=== PATIENT | male | born 1970 | race Caucasian/White ===

== ENCOUNTER 2019-03-14 11:54 | Inpatient (IN) ==
--- NOTE | 2019-03-14 12:31 | EKG Report ---
Test Performed on : 03/14/2019 11:57:34 AM Test Reason : chest pain Blood Pressure : / mmHG Vent. Rate : 100 BPM Atrial Rate : 100 BPM P-R Int : 128 ms QRS Dur : 100 ms QT Int : 364 ms P-R-T Axes : 061 062 003 degrees QTc Int : 469 ms Normal sinus rhythm. Cannot rule out Inferior infarct , age undetermined Abnormal ECG When compared with ECG of 31-AUG-2014 10:29, Minimal criteria for Inferior infarct are now present Unconfirmed Result
[2019-03-14] MEDS ORDERED: NITROGLYCERIN SL ONE (12:37)
[2019-03-14] MEDS ORDERED: ASPIRIN PO ONE (12:37)
[2019-03-14] MEDS ORDERED: DUONEB (A & A) INH ONE (12:38)
--- NOTE | 2019-03-14 12:48 | PROVIDER DOCUMENTATION ---
HPI-Cardiac General - General Chief Complaint: Chest Pain Stated Complaint: CP, SWEATY, WEAK Time Seen by Provider: 03/14/19 12:15 Source: patient Allergies/Adverse Reactions: Patient Allergies Allergy/AdvReac Type Severity Reaction Status Date / Time meperidine HCl * Allergy Unknown Verified 03/14/19 12:33 [From Demerol] Home Medications: Home Medication List Medication Instructions Recorded Confirmed Last Taken Type Tamsulosin HCl [Flomax] 0.4 mg PO DAILY 03/07/14 03/14/19 03/14/19 History Methocarbamol [Robaxin-750] 750 mg PO Q8H PRN PRN 08/31/14 03/14/19 03/14/19 History Dexlansoprazole [Dexilant] 60 mg PO DAILY 01/07/17 03/14/19 03/14/19 History Oxycodone HCl/Acetaminophen 1 each PO Q8H PRN PRN 01/07/17 03/14/19 03/14/19 History [Percocet 10-325 mg Tablet] Cholecalciferol (Vitamin D3) 1 cap PO DIRECTED 03/14/19 03/14/19 03/14/19 History [Vitamin D3] Duloxetine HCl 1 tab PO DAILY 03/14/19 03/14/19 03/14/19 History Meloxicam 1 tab PO DAILY 03/14/19 03/14/19 03/13/19 History Pregabalin 1 tab PO BID 03/14/19 03/14/19 03/14/19 History - History of Present Illness-Cardiac Nature of Presenting Problem: Patient with a h/o COPD, ?CHF. CAD s/p CATH ,Arthritis(C spine, lumbar spine) recently had steroid shot to the neck and on chronic opiate medication, reports pain around the c spine, left arm and lower extremities around 7AM today with left sided chest pain, diaphoresis and fatigue while at work today. he had taken his pain med around 5AM today prior to onset of symptoms. Admits to nausea without vomiting. No focal weakness. he reports a diagnosis of CHD, CAD with evaluation in this hospital in the past but records does not show these diagnosis and he has not cardiac medss Location: reports: other (left sided) Quality of Pain: reports: sharp Onset/Duration: this morning Timing: still present Context/Activities at Onset: reports: light activity Modifying Factors: improves with: nothing Palpitation Quality: N/A History of arrythmia: reports: none Nitro Today/Relief: reports: no nitro taken today Aspirin Treatment Today: reports: no aspirin today Prior Chest Pain/Cardiac Workup: reports: cardiac cath Associated Symptoms: reports: diaphoresis, nausea Similar Symptoms Previously?: Yes Recently Seen Here or By Another Healthcare Provider: Yes Review of Systems - Adult - REVIEW OF SYSTEMS - ADULT Constitutional: reports: no symptoms reported Eyes: reports: no symptoms reported Ears, Nose, Mouth & Throat: reports: no symptoms reported Cardiovascular: reports: see HPI Respiratory: reports: no symptoms reported Gastrointestinal: reports: no symptoms reported Genitourinary: reports: no symptoms reported Musculoskeletal: reports: no symptoms reported Integumentary: reports: no symptoms reported Neurological: reports: no symptoms reported Psychiatric: reports: no symptoms reported Endocrine: reports: no symptoms reported Hematologic/Lymphatic: reports: no symptoms reported Allergic/Immunologic: reports: no symptoms reported Past History - Adult - PAST MEDICAL HISTORY-ADULT Review of Records: reports: Nursing Assessment Review, Medications Reviewed, Social history reviewed & non-contributory. Physical Exam-General - PHYSICAL EXAM-ADULT Initial Vital Signs Reviewed: Yes - CONSTITUTIONAL General Appearance: appears well, alert, mild distress - EYES Eyes: PERRL/EOMI - HEAD, EARS, NOSE, MOUTH & THROAT HENMT: normocephalic/atraumatic - NECK Neck: non-tender, full range of motion - RESPIRATORY Respiratory: chest non-tender, lungs clear, wheezing - CARDIOVASCULAR Cardiovascular: regular rate, rhythm, no edema, no JVD - GASTROINTESTINAL (ABDOMEN) Abdominal Exam: non tender, soft - MUSCULOSKELETAL Back Exam: normal inspection Extremity: normal range of motion - SKIN Integumentary: normal color - NEUROLOGIC Neurologic: welfare administrator II-XII nml as tested - PSYCHIATRIC Psych/Mental Status: oriented x 3 - HEART Score HEART Score: History: Highly Suspicious HEART Score: ECG: Non-Specific Repolarization Disturbance/LBBB/PM HEART Score: Age: 45-65 Years HEART Score: Risk Factors for Atherosclerotic Disease: > or = 3 Risk Factors or History of Atherosclerotic Disease HEART Score: Troponin: 1-3x Normal Limit Total HEART Score:: 7 Progress - PLAN OF CARE/RESULTS Progress/Plan/Lab Results: Vital Signs - 8 hr 03/14/19 12:03 03/14/19 12:15 03/14/19 12:16 Temperature 97.8 F Pulse Rate 99 H 96 H Respiratory Rate 18 20 Blood Pressure 133/75 146/95 O2 Sat by Pulse Oximetry 96 92 L 92 L 03/14/19 12:30 03/14/19 12:47 03/14/19 12:58 Temperature Pulse Rate 106 H 106 H 100 H Respiratory Rate 12 24 17 Blood Pressure 138/88 140/89 O2 Sat by Pulse Oximetry 94 L 95 91 L 03/14/19 13:10 03/14/19 13:12 03/14/19 13:15 Temperature Pulse Rate 106 H 104 H 103 H Respiratory Rate 16 12 11 L Blood Pressure O2 Sat by Pulse Oximetry 92 L 99 98 03/14/19 13:17 03/14/19 13:31 03/14/19 14:00 Temperature Pulse Rate 95 H 94 H 82 Respiratory Rate 10 L 17 20 Blood Pressure 139/79 143/91 O2 Sat by Pulse Oximetry 94 L 92 L 91 L 03/14/19 14:01 03/14/19 14:31 03/14/19 15:00 Temperature Pulse Rate 82 80 89 Respiratory Rate 20 17 17 Blood Pressure 132/82 121/81 O2 Sat by Pulse Oximetry 92 L 90 L 96 03/14/19 15:01 03/14/19 15:31 03/14/19 16:00 Temperature Pulse Rate 85 81 84 Respiratory Rate 19 8 L 17 Blood Pressure 143/89 123/86 O2 Sat by Pulse Oximetry 95 99 93 L 03/14/19 16:01 03/14/19 16:31 Temperature Pulse Rate 84 91 H Respiratory Rate 17 19 Blood Pressure 118/89 139/89 O2 Sat by Pulse Oximetry 93 L 94 L Laboratory Results - last 24 hr 03/14/19 03/14/19 03/14/19 12:48 12:48 12:48 WBC 19.44 H RBC 4.85 Hgb 15.6 Hct 46.5 MCV 95.9 MCH 32.2 H MCHC 33.5 RDW Std Deviation 14.9 H Plt Count 245 MPV 10.4 Immature Gran % (Auto) 0.4 Neut % (Auto) 75.2 Lymph % (Auto) 15.7 L [place] % (Auto) 8.1 Eos % (Auto) 0.5 Baso % (Auto) 0.1 Immature Gran # (Auto) 0.08 H Neut # (Auto) 14.62 H Lymph # (Auto) 3.05 Emery # (Auto) 1.58 H Eos # (Auto) 0.09 Baso # (Auto) 0.02 PT INR PTT (Actin FS) Sodium 138 Potassium 4.1 Chloride 97 L Carbon Dioxide 26 Anion Gap 15 BUN 13 Creatinine 1.0 Estimated GFR/1.73 m2 > 60 BUN/Creatinine Ratio 13 Glucose 123 H Calculated Osmolality 277 Calcium 8.9 Total Bilirubin 0.26 AST 13 ALT 14 Alkaline Phosphatase 93 Creatine Kinase 60 Troponin T < 0.010 Ogs-J-Ownqbwawgin Pept Total Protein 7.5 Albumin 5.1 H Globulin 2.4 Albumin/Globulin Ratio 2.1 Plasma Lactate Urine Source Urine Color Urine Turbidity Urine pH Ur Specific [place] Urine Protein Ur Glucose (Stick) Ur Ketones (Stick) Urine Blood Urine Nitrite Urine Bilirubin Urobilinogen Dipstick Urine Leukocytes Urine WBC (Auto) Urine RBC (Auto) U Epithel Cells (Auto) Urine Bacteria (Auto) 03/14/19 03/14/19 03/14/19 12:48 12:48 13:39 WBC RBC Hgb Hct MCV MCH MCHC RDW Std Deviation Plt Count MPV Immature Gran % (Auto) Neut % (Auto) Lymph % (Auto) [place] % (Auto) Eos % (Auto) Baso % (Auto) Immature Gran # (Auto) Neut # (Auto) Lymph # (Auto) [place] # (Auto) Eos # (Auto) Baso # (Auto) PT 12.7 INR 0.95 PTT (Actin FS) 27.2 Sodium Potassium Chloride Carbon Dioxide Anion Gap BUN Creatinine Estimated GFR/1.73 m2 BUN/Creatinine Ratio Glucose Calculated Osmolality Calcium Total Bilirubin AST ALT Alkaline Phosphatase Creatine Kinase Troponin T Cha-L-Hzpvdbevnex Pept 367 H Total Protein Albumin Globulin Albumin/Globulin Ratio Plasma Lactate 1.8 Urine Source Urine Color Urine Turbidity Urine pH Ur Specific [place] Urine Protein Ur Glucose (Stick) Ur Ketones (Stick) Urine Blood Urine Nitrite Urine Bilirubin Urobilinogen Dipstick Urine Leukocytes Urine WBC (Auto) Urine RBC (Auto) U Epithel Cells (Auto) Urine Bacteria (Auto) 03/14/19 03/14/19 03/14/19 16:25 16:30 16:30 WBC RBC Hgb Hct MCV MCH MCHC RDW Std Deviation Plt Count MPV Immature Gran % (Auto) Neut % (Auto) Lymph % (Auto) [place] % (Auto) Eos % (Auto) Baso % (Auto) Immature Gran # (Auto) Neut # (Auto) Lymph # (Auto) [place] # (Auto) Eos # (Auto) Baso # (Auto) PT INR PTT (Actin FS) Sodium Potassium Chloride Carbon Dioxide Anion Gap BUN Creatinine Estimated GFR/1.73 m2 BUN/Creatinine Ratio Glucose Calculated Osmolality Calcium Total Bilirubin AST ALT Alkaline Phosphatase Creatine Kinase Troponin T < 0.010 Mdz-J-Nhyfkjopaxs Pept Total Protein Albumin Globulin Albumin/Globulin Ratio Plasma Lactate 1.8 Urine Source CLEAN CATCH Urine Color YELLOW Urine Turbidity CLEAR Urine pH 6.5 Ur Specific [place] 1.009 Urine Protein NEGATIVE Ur Glucose (Stick) NEGATIVE Ur Ketones (Stick) NEGATIVE Urine Blood NEGATIVE Urine Nitrite NEGATIVE Urine Bilirubin NEGATIVE Urobilinogen Dipstick NORMAL Urine Leukocytes NEGATIVE Urine WBC (Auto) <10 Urine RBC (Auto) <10 U Epithel Cells (Auto) <10 Urine Bacteria (Auto) NEGATIVE Orders Category Date Time Status Cardiac Monitoring DIRECTED Care 03/14/19 13:17 Active IV Insertion ORDERED Care 03/14/19 13:17 Completed Notify MD of + Sepsis Screen NOW Care 03/14/19 13:17 Active Notify Physician As Ordered Care 03/14/19 13:17 Active cxr [CHEST-2 VIEWS] [RAD] Stat Exams 03/14/19 12:39 Completed BLOOD CULTURE [BLDCUL] Stat Lab 03/14/19 13:39 Results CBC WITH DIFF [HEME] Stat Lab 03/14/19 12:48 Completed CK PROFILE [SP CHEM] Stat Lab 03/14/19 12:48 Completed CMP [COMPREHENSIVE METABOLIC PANEL] [CHEM] Stat Lab 03/14/19 12:48 Completed LACTATE, PLASMA [CHEM] Lab 03/14/19 13:39 Completed LACTATE, PLASMA [CHEM] Lab 03/14/19 16:30 Completed LACTATE, PLASMA [CHEM] Lab 03/14/19 19:30 Uncollected PRO B-NATRIURETIC PEPTIDE Stat Lab 03/14/19 12:48 Completed PROTIME WITH INR [COAG] Stat Lab 03/14/19 12:48 Completed PTT [COAG] Stat Lab 03/14/19 12:48 Completed TROPONIN T Stat Lab 03/14/19 12:48 Completed TROPONIN T Stat Lab 03/14/19 16:30 Completed URINALYSIS W/POSS RFLX CULT [URINALYSIS] Stat Lab 03/14/19 16:25 Completed Albuterol 2.5MG/Ipratrop 0.5MG [Duoneb (A & A)] Med 03/14/19 12:38 Discontinued 3 ml INH NOW ONE Albuterol [Albuterol Neb] Med 03/14/19 14:55 Discontinued 2.5 mg INH NOW ONE Aspirin Med 03/14/19 12:37 Discontinued 325 mg PO NOW ONE Nitroglycerin Sl [Nitroglycerin] Med 03/14/19 12:37 Discontinued 0.4 mg SL NOW ONE Aerosol Treatments Routine Oth 03/14/19 12:38 Completed Aerosol Treatments Routine Oth 03/14/19 14:55 Completed Aerosol Treatments Stat Oth 03/14/19 12:38 Completed Aerosol Treatments Stat Oth 03/14/19 14:55 Completed Oxygen Device Stat Oth 03/14/19 13:17 Completed EKG [EKG] Stat Ther 03/14/19 12:06 Draft EKG [EKG] Stat Ther 03/14/19 14:55 Draft Result Diagrams: 03/14/19 12:48 03/14/19 12:48 - REASSESSMENT Reassessment #1 Time Reassessed: 05:30 Status: unchanged (Patient chest pain has improved but still c/o fatigue. He says he does not feel good and that something is wrong with him. Will admit patient) - EKG 1 Time of EKG reading by physician:: 14:44 EKG Read and Signed by:: Kim Carr Rate: 100 Rhythm: sinus [place]: normal QRS: normal 2 Time of EKG reading by physician:: 16:43 EKG Read and Signed by:: Kim Carr Rate: 85 Rhythm: sinus [place]: normal QRS: normal Prior EKG Comparison: unchanged from prior - XRAY 1 XRAY Study: Chest ( CHEST-2 VIEWS - 03/14/2019 INDICATION: chest pain/sob C OMPARISON: 06/06/2014 FINDINGS: The lungs are normally expanded and clear. Heart size and mediastinal contours are normal. No pneumothorax or pleural effusion. IMPRESSION: Negative exam. Electronically signed by Simon Bird 03/14/2019 1:08 PM) - CONSULTS/PCP/HOSPITALIST Notification #1 *Consult/PCP/Hospitalist*: Dr Nguyen Time Discussed: 05:55 Consult Disposition: Admit (Discussed admission with Dr Nguyen) Departure - Departure Date of Disposition Decision: 03/14/19 Time of Disposition Decision: 18:28 DIAGNOSIS: Chronic obstructive airway disease Qualifiers: COPD type: COPD with acute exacerbation Qualified Code(s): J44.1 - Chronic obstructive pulmonary disease with (acute) exacerbation Chest pain Qualifiers: Chest pain type: unspecified Qualified Code(s): R07.9 - Chest pain, unspecified Disposition: ADMITTED INPATIENT 09 Certified Medical Emergency: Emergent Condition: Fair Referrals and Follow-Ups: Iglesia Mccloud MD [Primary Care Provider] - - Critical Care Note This patient required my direct & personal management of CC.: No Attestation - Physician/ LUCY Attestation Patient care was provided by Advanced Practice Provider:: No The physician spent face to face time with patient:: Yes Advanced Practice Provider documentation review:: Supervising physician onsite and consulted in the evaluation and care of this patient. The physician did have a face to face encounter with the patient.
[2019-03-14 13:03] LABS: BASO# 0.02 X1000 (0.0-0.2); BASO% 0.1 % (0.0-0.8); EOS# 0.09 X1000 (0.0-0.7); EOS% 0.5 % (0.0-10.0); HEMATOCRIT 46.5 % (42.0-52.0); HEMOGLOBIN 15.6 g/dL (14.0-18.0); IMM GRAN# 0.08 X1000 (0.0-0.04); IMM GRAN% 0.4 % (0.0-0.5); LYMPH# 3.05 X1000 (1.2-3.4); LYMPH% 15.7 % (20.5-51.1); MCH 32.2 PG (27-31); MCHC 33.5 g/dL (33-37); MCV 95.9 FL (81-99); MONO# 1.58 X1000 (0.11-0.59); MONO% 8.1 % (1.7-9.3); MPV 10.4 FL (7.4-10.4); NEUT# 14.62 X1000 (1.4-6.5); NEUT% 75.2 % (42.2-75.2); PLT 245 X1000 (130-400); RBC 4.85 XMIL (4.7-6.1); RDW 14.9 % (11.5-14.5); WBC 19.44 X1000 (4.8-10.8)
--- NOTE | 2019-03-14 13:10 | Diag Imaging Result Doc PS360 ---
CHEST-2 VIEWS - 03/14/2019 INDICATION: chest pain/sob COMPARISON: 06/06/2014 FINDINGS: The lungs are normally expanded and clear. Heart size and mediastinal contours are normal. No pneumothorax or pleural effusion. IMPRESSION: Negative exam. Electronically signed by Simon Bird 03/14/2019 1:08 PM
[2019-03-14 13:58] LABS: AGAP 15; ALB/GLOB RATIO 2.1; ALBUMIN 5.1 g/dL (3.5-5.0); ALKALINE PHOSPHATASE 93 U/L (32-122); BUN 13 mg/dL (8-22); CALCIUM 8.9 mg/dL (8.8-10.2); CHLORIDE 97 mmol/L (98-107); CK PROFILE 60 U/L (24-204); COSMO 277; ESTIMATED GFR > 60; GLUCOSE 123 mg/dL (70-104); GOT 13 U/L (10-34); GPT 14 U/L (10-44); POTASSIUM 4.1 mmol/L (3.5-5.1); SODIUM 138 mmol/L (136-145); TCO2 26 mmol/L (25-35); TOTAL BILIRUBIN 0.26 mg/dL (0.20-1.00); TOTAL PROTEIN 7.5 g/dL (6.3-8.3)
[2019-03-14 14:00] LABS: INR 0.95; PROTIME 12.7 Seconds (11.0-16.0)
[2019-03-14 14:01] LABS: PTT 27.2 Seconds (22.3-41.8)
[2019-03-14] MEDS ORDERED: ALBUTEROL NEB INH ONE (14:55)
[2019-03-14 16:40] LABS: URINE SOURCE CLEAN CATCH
[2019-03-14 16:43] LABS: BILIRUBIN URINE NEGATIVE (NEGATIVE); BLOOD URINE NEGATIVE (NEGATIVE); COLOR YELLOW; GLUCOSE URINE NEGATIVE (NEGATIVE); KETONE URINE NEGATIVE (NEGATIVE); LEUKOCYTES URINE NEGATIVE (NEGATIVE); NITRITE URINE NEGATIVE (NEGATIVE); PH URINE 6.5; PROTEIN URINE NEGATIVE (NEGATIVE); SP GRAVITY URINE 1.009; TURBIDITY URINE CLEAR (CLEAR); UROBILINOGEN URINE NORMAL (NORMAL)
[2019-03-14 16:44] LABS: UR EPITHELIAL CELLS <10 /HPF (<10); URINE BACTERIA NEGATIVE /HPF; URINE RBC <10 /HPF (<10); URINE WBC <10 /HPF (<10)
--- NOTE | 2019-03-14 16:52 | EKG Report ---
Test Performed on : 03/14/2019 4:25:43 PM Test Reason : CP Blood Pressure : / mmHG Vent. Rate : 085 BPM Atrial Rate : 085 BPM P-R Int : 126 ms QRS Dur : 104 ms QT Int : 390 ms P-R-T Axes : 052 030 021 degrees QTc Int : 464 ms Normal sinus rhythm. Inferior infarct (cited on or before 14-MAR-2019) Abnormal ECG When compared with ECG of 14-MAR-2019 11:57, (Unconfirmed) No significant change was found Unconfirmed Result
[2019-03-14] MEDS: ALBUTEROL NEB INH PRN ×2 (19:37→21:46)
[2019-03-14] MEDS ORDERED: ROBAXIN PO PRN (20:37)
[2019-03-14] MEDS: LEVAQUIN 750 MG/D5W 750 MG/150 ML IVPB IV SCH (21:18)
[2019-03-14] MEDS: LYRICA PO SCH (21:18)
[2019-03-14] MEDS: LOVENOX SUBQ SCH (21:18)
[2019-03-14] MEDS: FLOMAX PO SCH (21:21)
[2019-03-14] MEDS: PERCOCET-10 PO PRN (21:39)
[2019-03-14] MEDS: ROBAXIN PO PRN (21:40)
--- NOTE | 2019-03-14 22:57 | HISTORY AND PHYSICAL ---
FINAL DISCHARGE DIAGNOSIS: Chest pain. HISTORY OF PRESENT ILLNESS: Mr. Cerrato is a 48-year-old white gentleman, who was in his usual state of health this morning. The patient claimed he went to his chicken house. He was walking across and suddenly headache chest pain, which he described as left-sided going to his neck and arm, moderate in intensity. The pain lasted for 15 minutes. The patient claimed pain made him extremely weak. The patient was feeling dizzy. He broke out in cold sweats. The patient was feeling so weak he has to lay down on the floor. It took at least an hour for him to get some better and to get up. The patient claimed the whole day he was not feeling well. Because of which, he came to the emergency room. Evaluated in the ER. His cardiac workup was not impressive, but patient claimed he was not feeling well. The patient does have significant risk factors for coronary artery disease and we decided to admit the patient for further care. The patient does have cough with scanty sputum production. At times, wheezing. No hemoptysis. No history suggestive of DVT or pleuritic type of chest pain. The patient does have chronic neck pain and low back pain. The patient is being followed up by pain clinic. Patient had an injection in his neck a few days ago. It did help his the right side, but the left side pain persisted. The patient does smoke 1 or 2 cigars a day. Does have cough with scanty sputum production. At times, wheezing. No unusual shortness of breath. No leg swelling, calf pain or history suggestive of DVT. No heat or cold intolerance. At times, polyuria, polydipsia. No focal numbness, tingling, or weakness. The patient is going to Pain Clinic on pain medication. The patient does have history suggestive of anxiety for which the patient is on Cymbalta and it does help. No major weight loss or weight gain. Denied any joint swelling or redness. No further history available at this time. ALLERGIES: Demerol. PAST MEDICAL HISTORY: Significant for chronic neck pain, chronic back pain. The patient had spinal stenosis, hyperlipidemia, hypogonadism, obstructive sleep apnea, gastritis and reflux disease, chest pain. PAST SURGICAL HISTORY: Patient had cholecystectomy, vasectomy, back surgery and multiple lumbar fusions. CURRENT MEDICATIONS: Include Robaxin, Cymbalta, Flomax, Percocet, nebulizer treatment. SOCIAL HISTORY: . The patient is not working. Denied alcohol or substance abuse. FAMILY HISTORY: Father significant for coronary artery disease, aneurysm. Mother with breast cancer. Grandfather with prostate cancer. REVIEW OF SYSTEMS: As per HPI. PHYSICAL EXAMINATION: GENERAL: Middle-aged white gentleman in mild distress. VITAL SIGNS: Blood pressure 148/88, pulse 77, respiration rate 14, temperature 98.2 degrees. SKIN: Normal turgor. HEENT: Head atraumatic, normocephalic. [place] conjunctivae. Anicteric sclerae. Extraocular muscle movement normal. Fundus cannot be penetrated. No pharyngeal congestion. Ears and nose benign. NECK: Supple. No JVD, thyromegaly or lymphadenopathy. CHEST: Bilateral good air entry present. Bibasilar crepitation. Occasional wheezing. CARDIOVASCULAR: S1 and S2 heard. No gallop or thrill. ABDOMEN: Soft. No distention. Bowel sounds present. No organomegaly or mass. EXTREMITIES: No cyanosis, clubbing. No acute DVT. No acute vascular compromise. SALICYLIC ACID BLENDER: Alert, awake answering questions fairly well. Able to move all 4 limbs. Tenderness to lumbosacral spine. LABORATORY DATA: Revealed leukocytosis with left shift, hemoglobin 15.6, hematocrit 46.5, WBC count 19.44. PT/INR 0.95, PTT 27.2. His electrolytes were fairly benign. Cardiac isoenzymes were negative. ProBNP 367. Plasma lactate 1.8. Urinalysis was benign. Chest x-ray was negative. IMPRESSION: 1. Patient admitted with chest pain. Rule out myocardial infarction. His EKG reviewed leukocytosis. 2. Source of infection not clear. We did septic workup. Empirically started patient on Levaquin. 3. Benign prostatic hyperplasia. 4. Chronic obstructive pulmonary disease. 5. Chronic neck and low back pain. 6. History of anxiety. PLAN: Admit the patient. Serial EKG and cardiac isoenzymes. I am going to get echocardiogram and stress test. Cardiology consult. Smoking cessation. Check appropriate labs. OVERALL PLAN: Overall plan discussed at length with the patient and he is in agreement. We will continue home medicine. cc: MD Alcides Pratt MD
--- NOTE | 2019-03-15 05:27 | EKG Report ---
Test Performed on : 03/14/2019 9:42:06 PM Test Reason : chest pain Blood Pressure : / mmHG Vent. Rate : 083 BPM Atrial Rate : 083 BPM P-R Int : 120 ms QRS Dur : 102 ms QT Int : 410 ms P-R-T Axes : 055 065 043 degrees QTc Int : 481 ms Normal sinus rhythm. Nonspecific T wave abnormality Prolonged QT Abnormal ECG Confirmed by [place] PRITCHARD, Kristian Woods ([id number]) on 03/16/2019 7:29:50 AM
[2019-03-15 05:31] LABS: BASO# 0.02 X1000 (0.0-0.2); BASO% 0.1 % (0.0-0.8); EOS# 0.16 X1000 (0.0-0.7); EOS% 1.2 % (0.0-10.0); HEMATOCRIT 43.7 % (42.0-52.0); HEMOGLOBIN 14.2 g/dL (14.0-18.0); IMM GRAN# 0.05 X1000 (0.0-0.04); IMM GRAN% 0.4 % (0.0-0.5); LYMPH# 4.85 X1000 (1.2-3.4); LYMPH% 35.9 % (20.5-51.1); MCH 31.9 PG (27-31); MCHC 32.5 g/dL (33-37); MCV 98.2 FL (81-99); MONO# 1.27 X1000 (0.11-0.59); MONO% 9.4 % (1.7-9.3); MPV 10.7 FL (7.4-10.4); NEUT# 7.15 X1000 (1.4-6.5); PLT 227 X1000 (130-400); RBC 4.45 XMIL (4.7-6.1); RDW 14.9 % (11.5-14.5)
[2019-03-15 06:05] LABS: AGAP 13; ALB/GLOB RATIO 1.4; ALBUMIN 4.3 g/dL (3.5-5.0); ALKALINE PHOSPHATASE 82 U/L (32-122); BUN 16 mg/dL (8-22); CALCIUM 9.3 mg/dL (8.8-10.2); CHLORIDE 98 mmol/L (98-107); CHOLESTEROL 232 mg/dL (0-200); COSMO 277; CREATININE 0.9 mg/dL (0.7-1.2); ESTIMATED GFR > 60; GLUCOSE 108 mg/dL (70-104); GOT 14 U/L (10-34); GPT 13 U/L (10-44); HDL 29 mg/dL (35-55); MAGNESIUM 1.9 mg/dL (1.5-2.7); PHOSPHORUS 3.7 mg/dL (2.7-4.5); POTASSIUM 5.8 mmol/L (3.5-5.1); SODIUM 138 mmol/L (136-145); TCO2 27 mmol/L (25-35); TOTAL BILIRUBIN 0.29 mg/dL (0.20-1.00); TOTAL PROTEIN 7.3 g/dL (6.3-8.3); TRIGLYCERIDES 454 mg/dL (39-160)
[2019-03-15 06:10] LABS: HEMOGLOBIN A1C 5.7 % (4.8-6.0)
[2019-03-15] MEDS ORDERED: SODIUM CHLORIDE 0.9% INJ SCH (07:45)
[2019-03-15] MEDS: ALBUTEROL NEB INH PRN ×2 (08:13→21:46)
[2019-03-15] MEDS ORDERED: DEXILANT PO SCH (09:00)
[2019-03-15] MEDS: ASPIRIN EC PO SCH (09:00)
[2019-03-15] MEDS ORDERED: LEXISCAN ONE (09:46)
[2019-03-15] MEDS: LYRICA PO SCH ×2 (11:27→11:34)
[2019-03-15] MEDS: FLOMAX PO SCH (11:28)
[2019-03-15] MEDS: MOBIC PO SCH (11:29)
[2019-03-15] MEDS: PROTONIX IV SCH (11:36)
[2019-03-15] MEDS: SODIUM CHLORIDE 0.9% INJ SCH (11:38)
[2019-03-15] MEDS: PERCOCET-10 PO PRN ×2 (11:56→21:12)
[2019-03-15] MEDS: ROBAXIN PO PRN ×2 (11:58→21:11)
--- NOTE | 2019-03-15 14:57 | Diag Imaging Result Doc PS360 ---
CT HEAD W/O CONTRAST - 03/15/2019 INDICATION: HEADACHES , INCREASED BP COMPARISON: None FINDINGS: The ventricles and sulci are normal in size and contour. No intracranial mass or hemorrhage. The skull is intact. The sinuses mastoids and middle ears are clear. IMPRESSION: Negative exam. This exam was performed using automated exposure control, adjustment of mA or kV according to patient size, and/or use of iterative reconstruction technique Electronically signed by Simon Bird 03/15/2019 2:54 PM
--- NOTE | 2019-03-15 15:16 | Diag Imaging Result Doc PS360 ---
CT CERVICAL SPINE W/O CONTRAST - 03/15/2019 INDICATION: Neck pain COMPARISON: None FINDINGS: Alignment is anatomic. No fracture or subluxation. There is perhaps mild degenerative disc disease at C6-C7. There is moderate facet degeneration on the right side at C5-C6 and C6-C7. No central canal stenosis. Soft tissues are clear. IMPRESSION: Mild degenerative changes of the cervical spine. This exam was performed using automated exposure control, adjustment of mA or kV according to patient size, and/or use of iterative reconstruction technique. Electronically signed by Simon Bird 03/15/2019 3:13 PM
--- NOTE | 2019-03-15 18:07 | ECHO REPORT ---
ORDER DATE: 03/14/2019 MEASUREMENTS: Septal thickness 1.2, left ventricular internal diameter in diastole 3.9, posterior wall thickness 1.2, left ventricular internal diameter in systole 2.6, left atrium 3.3, aortic root 3.4. SUMMARY: 1. Technically difficult study due to difficult parasternal acoustic window quality. 2. Aortic valve appears without evidence of structural abnormality and appears to open adequately on 2-dimensional images. Peak gradient across aortic valve is less than 10 mmHg. Mitral and tricuspid valves are without evidence of structural abnormality while pulmonic valve is not well demonstrated. There is trace mitral regurgitation. Aortic root is normal in size. 3. Normal left ventricular chamber size with mild concentric left hypertrophy is suggested. Estimated left ejection fraction appears to be at least 60%. There is severe hypokinesis of the basal and midinferior wall, basal inferoseptal wall, and basal inferolateral wall. No other wall motion abnormalities are evident. Left atrium, right atrium, right ventricle normal in size with grossly preserved right ventricular systolic function. 4. No pericardial effusion. 5. Appearance of inferior vena cava suggests normal central venous pressure. CONCLUSION: 1. Technically difficult study. 2. No significant valvular abnormality evident. 3. Estimated left ejection fraction approximately 60% with severe hypokinesis of the basal and midinferior wall, basal inferoseptal wall, and basal inferolateral wall. cc: MD Juventino Acosta MD Jagan Reddy, MD
[2019-03-15] MEDS: LEVAQUIN 750 MG/D5W 750 MG/150 ML IVPB IV SCH (19:48)
--- NOTE | 2019-03-15 20:38 | PROGRESS NOTE ---
DATE: 03/15/2019 SUBJECTIVE: A 48-year-old, white male, admitted to the hospital with chest pain, neck pain, headache, shortness of breath. I did review the H P by Dr. Nguyen. He is well known to my practice. He has been on chronic pain treatment by Dr. Humphrey. He also had last surgery on the right ankle which is healing. The patient was seen in the floor while he was getting an echo. PAST MEDICAL HISTORY: Reviewed. MEDICINES: Reviewed. ALLERGIES: Meperidine. PHYSICAL EXAMINATION: Temperature is 98 degrees, pulse 76, blood pressure is stable.HEENT: Within normal limits. Neck: Supple. Chest: Clear. Heart sounds are regular. Belly is soft, nontender, nonfocal. INVESTIGATIONS: Chest x-ray: COPD changes, nothing acute. EKG: No acute injury or ischemia. LABORATORY DATA: White cell count 13.5 which is coming down from 19.44, hematocrit 43, platelets 227,000. Sodium 138, potassium 5.8, chloride 98, BUN 16, creatinine 0.9, glucose 188. LFTs are normal. Cardiac enzymes were negative. Triglycerides 454, cholesterol 232, HDL 29, risk ratio 8.0. Lactate levels are normal. TSH is normal. Urinalysis is clear. Blood cultures 1/2 positive for gram-positive cocci. ASSESSMENT AND PLAN: 1. Chest pain. Ruled out for myocardial infarction. Scheduled for Lexiscan stress test. Follow up on echo. 2. Elevated white cell count, 1 gram-positive cocci, most likely contaminant. Currently on IV Levaquin. 3. Chronic pain, on Percocet under Dr. Humphrey. 4. Chronic obstructive pulmonary disease, on bronchodilators. 5. Hyperlipidemia. Consider antihyperlipidemic agents. 6. Deep venous thrombosis and gastrointestinal prophylaxis as per order sheet. 7. Reconcile home medications. 8. Will repeat the labs in the morning and will follow up. LEVEL OF DOCUMENTATION: 35 minutes. cc: Alcides Mccloud MD
[2019-03-15] MEDS ORDERED: LYRICA PO SCH (21:00)
[2019-03-15] MEDS: LOVENOX SUBQ SCH (21:12)
[2019-03-16 06:08] LABS: BASO# 0.03 X1000 (0.0-0.2); BASO% 0.2 % (0.0-0.8); EOS# 0.16 X1000 (0.0-0.7); EOS% 1.3 % (0.0-10.0); HEMATOCRIT 44.2 % (42.0-52.0); HEMOGLOBIN 14.5 g/dL (14.0-18.0); IMM GRAN# 0.03 X1000 (0.0-0.04); IMM GRAN% 0.2 % (0.0-0.5); LYMPH# 4.73 X1000 (1.2-3.4); LYMPH% 38.4 % (20.5-51.1); MCH 32.2 PG (27-31); MCHC 32.8 g/dL (33-37); MONO# 1.43 X1000 (0.11-0.59); MONO% 11.6 % (1.7-9.3); MPV 10.5 FL (7.4-10.4); NEUT# 5.95 X1000 (1.4-6.5); NEUT% 48.3 % (42.2-75.2); PLT 233 X1000 (130-400); RBC 4.51 XMIL (4.7-6.1); RDW 14.9 % (11.5-14.5); WBC 12.33 X1000 (4.8-10.8)
[2019-03-16 06:44] LABS: AGAP 11; ALB/GLOB RATIO 1.6; ALBUMIN 4.4 g/dL (3.5-5.0); ALKALINE PHOSPHATASE 84 U/L (32-122); BUN 13 mg/dL (8-22); CALCIUM 8.5 mg/dL (8.8-10.2); CHLORIDE 99 mmol/L (98-107); COSMO 272; CREATININE 0.8 mg/dL (0.7-1.2); ESTIMATED GFR > 60; GLUCOSE 106 mg/dL (70-104); GOT 13 U/L (10-34); GPT 15 U/L (10-44); POTASSIUM 4.1 mmol/L (3.5-5.1); SODIUM 136 mmol/L (136-145); TCO2 26 mmol/L (25-35); TOTAL BILIRUBIN < 0.15 mg/dL (0.20-1.00); TOTAL PROTEIN 7.2 g/dL (6.3-8.3)
[2019-03-16] MEDS: ROBAXIN PO PRN ×2 (09:04→17:11)
[2019-03-16] MEDS: PERCOCET-10 PO PRN ×2 (09:05→17:10)
[2019-03-16] MEDS: MOBIC PO SCH (09:05)
[2019-03-16] MEDS: VALTREX PO SCH (09:06)
[2019-03-16] MEDS: ASPIRIN EC PO SCH (09:06)
[2019-03-16] MEDS: SODIUM CHLORIDE 0.9% INJ SCH (09:06)
[2019-03-16] MEDS: FLOMAX PO SCH (09:06)
[2019-03-16] MEDS: PROTONIX IV SCH (09:06)
--- NOTE | 2019-03-16 10:43 | Diag Imaging Result Document ---
PROCEDURE NAME: MYOCARDIAL PERF SCAN, STR/REST - 03/14/2019 SUMMARY: The patient was administered 13.2 mCi of technetium-99m sestamibi, after which resting cardiac images were obtained. The patient was subsequently administered Lexiscan 0.4 mg intravenously, after which the heart rate went from 85 beats per minute to 107 beats per minute and the blood pressure went from 147/86 to 133/86. With Lexiscan, the patient denied chest discomfort. Following the administration of Lexiscan, the patient was administered 35.9 mCi of technetium-99m sestamibi, after which gated stress cardiac images were obtained. Baseline ECG demonstrated normal sinus rhythm and inferior infarct of undetermined age. With Lexiscan, there were no diagnostic ST-segment changes. SPECT images were reconstructed in the short, horizontal, long, and vertical long axes. Review of these images demonstrated a medium size severe defect in uptake in the basal and mid inferior wall on stress images, which appears unchanged on resting images. There is also mildly diminished activity in the apical inferior wall on stress images, which improves on resting images. Gated images demonstrate a calculated left ejection fraction of 43% with akinesis of the basal and mid inferior wall. CONCLUSIONS: 1. Adequate response to Lexiscan. 2. Clinically negative for chest discomfort. 3. Electrocardiographically, there were no diagnostic ST-segment changes on ECG following administration of Lexiscan. 4. Lexiscan sestamibi images demonstrate medium size fixed severe defect in the basal and mid inferior wall with a small area of mild reversibility in the apical inferior wall with corresponding akinesis of the basal and mid inferior wall. Result is consistent with previous inferior infarction with a small amount of erum-infarct ischemia in the apical inferior wall. Calculated left ejection fraction 51%. Clinical correlation recommended. cc: MD Juventino Acosta MD [facility] CENTERPaxton
--- NOTE | 2019-03-16 12:13 | CONSULTATION ---
DATE OF CONSULTATION: 03/16/2019 IMPRESSION: 1. Unstable angina. 2. Abnormal stress myocardial perfusion study suggesting basal to mid inferior infarct with erum- infarct ischemia in the inferior apex. Echocardiography also consistent. 3. Previous cigarette use, discontinued several years ago. 4. Hyperlipidemia, with difficulty tolerating statins. 5. Chronic back disorder. RECOMMENDATIONS: Favor pursuit of cardiac catheterization, selective coronary angiography. The rationale for this approach was discussed with the patient including potential risks for bleeding, vascular complication, allergic reaction, heart attack, stroke, and . The patient was also advised that given his clinical presentation there was a significant likelihood that he may require revascularization which would require transfer to [facility]. He may wish to go and proceed with cardiac catheterization here at [facility] this afternoon. HISTORY: This 48-year-old, white male, with past history of hyperlipidemia, and previous cigarette use, was admitted the day before yesterday with chest discomfort and lightheadedness. 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 He was walking and started to experience lightheadedness, some tachycardia and chest pressure. Discomfort radiated to his neck. He felt weak and fatigued, and had some associated diaphoresis. Discomfort lasted perhaps 30 minutes. He came to the emergency room for evaluation and was admitted. He is not aware of any previous heart problems. I cannot elicit any prior history of what sounds like angina before 2 days ago. He has had serial cardiac enzymes negative, and yesterday had stress myocardial perfusion study which was abnormal as outlined above. For this reason, Cardiology was consulted. MEDICAL HISTORY: 1. Hyperlipidemia, with poor tolerance of statins in the past. 2. Chronic back disorder, with multiple back surgeries. 3. Gastroesophageal reflux disease. PAST SURGICAL HISTORY: The past surgical history includes cholecystectomy, vasectomy, and several back surgeries. MEDICATIONS PRIOR TO ADMISSION: As listed. ALLERGIES: He is allergic or intolerant to meperidine. SOCIAL HISTORY: He is . 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 He has a history of previous cigarette use at a rate of 1/2 pack of cigarettes per day, but discontinued this several years ago. He does not use alcohol. FAMILY HISTORY: Positive for coronary disease and breast cancer. REVIEW OF SYSTEMS: Pulmonary: Noncontributory beyond history of present illness. Gastrointestinal: Noncontributory beyond history of present illness. Constitutional: Noncontributory beyond history of present illness. The remainder of review of systems negative/noncontributory beyond history of present illness with 14 total systems reviewed. PHYSICAL EXAMINATION: General: This is a pleasant, adult male in no distress. Vital signs: Blood pressure 140/85, heart rate 76 and regular. HEENT: Extraocular movements intact. Mucous membranes moist. Neck: Supple, without jugular venous distention. There are no carotid bruits. Chest: Clear to auscultation. Cardiac: Examination reveals a regular rate and rhythm, without appreciable murmur or gallop. Abdomen: Soft. Bowel sounds are normal. Extremities: Without edema. Neurologic: Examination reveals him to be alert and fully oriented. Speech is fluent. He moves all 4 extremities equally well. Skin: Warm and dry. Psychiatric: Examination reveals his mood to be appropriate. PERTINENT DATA: A 12-lead EKG demonstrates sinus rhythm and inferior infarct of undetermined age. LABORATORY DATA: The laboratory data includes initial troponin of less than 0.01, followup troponin less than 0.01. Sodium 136, potassium 4.1, chloride 99, carbon dioxide 26, BUN 13, creatinine 0.8, glucose 106. Triglycerides 454, total cholesterol 232, HDL cholesterol 29. cc: MD Alcides Acosta MD
[2019-03-16] MEDS ORDERED: HEPARIN 1000 UNITS/NS 2,000 UNIT/1,000 ML IV.SOLN ONE (13:29)
[2019-03-16] MEDS ORDERED: XYLOCAINE 1% ONE (13:29)
[2019-03-16] MEDS ORDERED: CLAVE PUMP SET NO FILTER 12260 ONE (14:02)
[2019-03-16] MEDS ORDERED: VERSED ONE (14:02)
[2019-03-16] MEDS ORDERED: CLAVE TWINSITE 32 IN 11959 ONE (14:02)
[2019-03-16] MEDS ORDERED: MORPHINE ONE ×2 (14:02→14:49)
[2019-03-16] MEDS ORDERED: NS 1,000 ML ONE (14:03)
[2019-03-16] MEDS ORDERED: LOPRESSOR ONE (14:51)
--- NOTE | 2019-03-16 15:10 | EKG Report ---
Test Performed on : 03/16/2019 2:50:44 PM Test Reason : chest pain Blood Pressure : / mmHG Vent. Rate : 092 BPM Atrial Rate : 092 BPM P-R Int : 130 ms QRS Dur : 100 ms QT Int : 366 ms P-R-T Axes : 066 050 063 degrees QTc Int : 452 ms Normal sinus rhythm. Normal ECG Confirmed by Chapincito PRITCHARD, Kristian Woods ([id number]) on 03/17/2019 7:44:23 AM
[2019-03-16] MEDS: LEVAQUIN 750 MG/D5W 750 MG/150 ML IVPB IV SCH (18:06)
[2019-03-16] MEDS: LOVENOX SUBQ SCH (20:17)
[2019-03-16] MEDS ORDERED: LIPITOR PO SCH (21:00)
[2019-03-16] MEDS ORDERED: LYRICA PO SCH (21:00)
--- NOTE | 2019-03-16 21:13 | PROGRESS NOTE ---
DATE: 03/16/2019 SUBJECTIVE: This morning, patient denies having any chest pain. Blood cultures 1 out of 2 positive, most likely contaminant. Waiting for the report from the stress test. I spoke to Dr. Juarez. Appreciated his followup. He read the scan yesterday and reported he has some inferior wall ischemic changes with infarct. Echo has normal LV function with hypokinesis of the inferior wall. I recommended to do a left heart catheterization. OBJECTIVE: Vital Signs: Stable. HEENT: Within normal limits. Chest: Clear. Heart: Sounds are regular. Abdomen: Belly is soft, nontender. Good bowel sounds. Neurologic: No neurological deficits. INVESTIGATIONS: White cell count 12, hematocrit 44, platelets 233,000. Sodium 137, potassium 4.1, chloride 99, BUN 13, creatinine 0.8, glucose 106, calcium 8.5. LFTs were normal. Cholesterol 232, triglycerides 454. ASSESSMENT AND PLAN: 1. Abnormal nuclear medicine scan with chest pain. Left heart catheterization. Based on that, further recommendations will be followed. 2. Gram-positive cocci 1 out of 2, most likely contaminant, currently intravenous Levaquin. 3. Chronic pain, on pain specialist. 4. Deep vein thrombosis prophylaxis with Lovenox. 5. Gastrointestinal prophylaxis with intravenous Protonix. 6. Hyperlipidemia. I am going to start with Lipitor and Vascepa for hypertriglyceridemia for secondary prevention. 7. Continue on aspirin. 8. Will follow up with Dr. Juarez's recommendations. LEVEL OF DOCUMENTATION: 25 minutes. cc: Alcides Mccloud MD
[2019-03-17 04:59] LABS: HEMOGLOBIN 14.7 g/dL (14.0-18.0); MCHC 32.7 g/dL (33-37); MCV 97.8 FL (81-99); MPV 10.4 FL (7.4-10.4); RBC 4.6 XMIL (4.7-6.1); RDW 14.7 % (11.5-14.5); WBC 12.77 X1000 (4.8-10.8)
[2019-03-17 05:03] LABS: INR 0.97; PROTIME 12.9 Seconds (11.0-16.0)
[2019-03-17 05:26] LABS: AGAP 14; BUN 20 mg/dL (8-22); CALCIUM 8.9 mg/dL (8.8-10.2); CHLORIDE 100 mmol/L (98-107); COSMO 277; CREATININE 0.7 mg/dL (0.7-1.2); ESTIMATED GFR > 60; GLUCOSE 101 mg/dL (70-104); POTASSIUM 4.2 mmol/L (3.5-5.1); SODIUM 137 mmol/L (136-145); TCO2 23 mmol/L (25-35)
[2019-03-17] MEDS: PROTONIX IV SCH (08:42)
[2019-03-17] MEDS: SODIUM CHLORIDE 0.9% INJ SCH (08:43)
[2019-03-17] MEDS: ASPIRIN EC PO SCH (09:19)
[2019-03-17] MEDS: MOBIC PO SCH (09:19)
[2019-03-17] MEDS: FLOMAX PO SCH (09:19)
[2019-03-17] MEDS: VALTREX PO SCH (09:19)
[2019-03-17] MEDS: PERCOCET-10 PO PRN (09:25)
[2019-03-17] MEDS: ROBAXIN PO PRN (09:26)
[2019-03-17 11:09] VITALS: BP 122/87
--- NOTE | 2019-03-19 18:35 | DISCHARGE SUMMARY ---
ADMISSION DATE: 03/14/2019 DISCHARGE DATE: 03/17/2019 DISCHARGING DIAGNOSES: 1. Chest pain due to right coronary artery disease. Transferred to [facility] for PCI. 2. Chronic obstructive pulmonary disease. 3. History of kidney stones on the left side. 4. Chronic back pain due to spinal stenosis. 5. Acid reflux disease. 6. Hyperlipidemia. 7. Hypogonadism. 8. Sleep apnea. 9. History of right ankle surgery. 10. History of multiple back surgeries. 11. History of cholecystectomy. 12. History of vasectomy. CONSULTATIONS: Dr. Ashkan Juarez. PROCEDURES: 1. Myocardial perfusion scan reported inferior wall reversible defect. Some of them are fixed. Ejection fraction 51%. 2. Echocardiography report: Technically difficult study. Estimated EF around 60% with hypokinesis of the basal inferior wall. RADIOLOGY PROCEDURES: 1. CT of cervical spine: Facet arthropathy, C5-C6 and C6-C7. 2. CT head negative. 3. Chest x-ray: No acute disease in the chest. 4. Cardiac catheterization reported critical RCA stenosis with exlv-[id number]-[id number] collaterals and some hibernating myocardium. Sent to [facility] for PCI. BRIEF HISTORY: Please see the H and P that was done by Dr. Clark In brief, he is a 49-year-old white gentleman with above problems who came in with chest pain atypical. The EKG initially cues in inferior wall which is fluctuating. Follow-up blood workup was negative. The patient had a Lexiscan stress test and echocardiography. Dr. Juarez reported he has reversible ischemia in the inferior wall. Subsequent left heart catheterization was done. It showed RCA stenosis with right- to-left collaterals. Sent to [facility] for PCI for possible stent and angioplasty. The patient has elevated triglycerides and cholesterol needs secondary prevention. LABORATORIES: White cell count 12.7, hematocrit 45, platelets 238,000. PT 12.9, INR 0.97. Sodium 137, potassium 4.2, chloride 100, BUN 20, creatinine 0.7, glucose 101, calcium 8.9, magnesium 2.0. Triglycerides 454, cholesterol 232, and HDL 29, risk ratio 8.0. TSH is normal. Urinalysis is clear. Blood cultures 1 out of 2 positive for coag-negative Staphylococcus, most likely contaminant. He had a slight elevated white cell count. He was given IV Levaquin. At this time, there is no significant clinical source of infection noted. The patient has been transferred to [facility] for PCI in a stable condition. DISCHARGING MEDICATIONS: Flomax 0.4 daily, Robaxin 750 q. 8 as needed, Dexilant 60 daily, Percocet 10 q. 8 under the care of Dr. Estrada, vitamin D 50,000 once a week, Mobic 15 mg daily, Lyrica 12 mg at bedtime, Cymbalta 60 one tablet daily, Valtrex 500 daily, and I started him on Lipitor 40 mg daily and Vascepa 1 g twice a day to maintain his secondary prevention. FOLLOWUP: Follow up from the [facility] after PCI. cc: MD Ashkan Cross MD MTDD
[2019-03-21] MEDS ORDERED: VITAMIN D PO SCH (09:00)
--- NOTE | 2019-03-30 08:55 | CARDIAC CATH REPORT ---
DATE: 03/16/2019 PROCEDURE PERFORMED: 1. Left heart catheterization. 2. Selective coronary angiography. 3. Left ventriculography. INDICATIONS: A 48-year-old white male admitted with episode of angina and palpitations, with stress myocardial perfusion imaging demonstrating fixed defect in the basal to mid inferior wall with reversibility in the apical inferior wall, suggesting prior basal to mid inferior infarction and some erum-infarct ischemia in the apical inferior wall. ENTRY SITE: Right femoral artery. CATHETERS USED: A 5-Brazilian JL4, 3DRC and angled pigtail. TECHNIQUE: After intravenous sedation with morphine and Versed, local anesthesia with lidocaine was applied over the right femoral artery. Arterial access was established with placement of a 5- Brazilian sheath in the right femoral artery, using modified Seldinger technique. Selective coronary angiography was performed, followed by left heart catheterization and left ventriculography. Upon completion of the procedure, the arterial sheath was removed from the right femoral artery and hemostasis facilitated with manual pressure. Following the procedure, the patient reported some atypical sharp left flank discomfort. Repeat ECG demonstrated no significant change. The patient was administered additional morphine for analgesia and discomfort faded away. FINDINGS: Hemodynamics: Aortic pressure 111/76 with a mean of 92, left ventricular pressure 127 over EDP. Comments on hemodynamics: There is no significant gradient across the aortic valve demonstrated on pullback from the left ventricle. Angiography: 1. Left ventriculogram: The left ventricle is of normal size with estimated left ventricular ejection fraction of 50% to 55%. There is akinesis and thinning of the basal to mid inferior wall. No other wall motion abnormalities are evident. There is no significant mitral regurgitation. 2. Left main coronary: The left main coronary is free of significant coronary stenosis. 3. Left anterior descending coronary: The left anterior descending coronary gives rise to a first diagonal branch which demonstrates a moderate (50% to 60%) ostial stenosis. Just beyond the first diagonal branch there is a focal area of mild to moderate (40%) stenosis. The remainder of the left anterior descending coronary and its branches are free of significant coronary stenosis. 4. Left circumflex: The left circumflex coronary gives rise to a large first obtuse marginal. This demonstrates a mild (30%) stenosis in the first obtuse marginal. The remainder of the left circumflex coronary artery and its branches are free of significant coronary stenosis. 5. Right coronary: The dominant right coronary demonstrates a segment of subtotal stenosis proximally. Beyond this, the right coronary artery is underfilled. The very distal right coronary can be seen receiving collaterals from the left coronary system. CONCLUSIONS: 1. Low-normal left ventricular systolic function with akinesis of the basal to mid inferior wall. 2. Right dominant coronary anatomy as described, with mild to moderate coronary atherosclerosis in the left anterior descending coronary, mild coronary atherosclerosis in obtuse marginal, and segmental subtotal stenosis in proximal right coronary artery, with the very distal right coronary artery receiving collaterals from the left coronary system. RECOMMENDATIONS: Consultation with Interventional Cardiology to consider merits of percutaneous intervention on right coronary artery, given the patient's recent angina symptoms suggesting some potential for viability in distribution of the right coronary. cc: MD Alcides Acosta MD
== END 2019-03-17 09:50 | disposition short-term general hospital (02) | DRG 287 ==
LOC: ED 11:54 → 1N 19:41 → ICU 03-16 15:41
PROVIDERS: ADMIT Internal Medicine; ATTEND Internal Medicine